=== PATIENT | male | born 1955 | race Caucasian/White ===

== ENCOUNTER 2022-09-23 20:21 | Emergency (ER) | payer BC, MEDICAID ==
[~2022-09-23] VITALS: Ht 193 cm; Wt 73.0 kg
[2022-09-23 20:25] VITALS: BP 115/73; PULSE 79; RESP 18; TEMP 98.1; O2SAT 98
[2022-09-24 02:15] LABS: BASOPHILS % 0.4 % (0.0-2.0); EOSINOPHILS % 1.5 % (0.0-5.0); HEMATOCRIT. 38.2 % (42.0-52.0); HEMOGLOBIN. 12.3 g/dL (14.0-18.0); LYMPHOCYTES % 12.5 % (20.0-50.0); MEAN CORPUSCULAR HEMOGLOBIN 20.3 pg (28.0-32.0); MEAN CORPUSCULAR VOLUME 63.1 fL (80.0-94.0); MEAN PLATELET VOLUME 9.4 fl (7.4-10.4); MONOCYTES % 12.7 % (2.0-8.0); NEUTROPHILS % 72.9 % (40.0-76.0); PLATELET 147 x1000/uL (130-400); RED BLOOD CELL COUNT 6.06 mill/uL (4.7-6.1); RED CELL DISTRIBUTION WIDTH 16.7 % (11.6-14.6)
[2022-09-24 02:23] LABS: CHLORIDE 103 mEq/L (98-107)
[2022-09-24 02:32] LABS: ETHANOL BLOOD < 10 mg/dL (-10)
[2022-09-24] MEDS ORDERED: DOXY-456 PO (02:57)
[2022-09-24] MEDS ORDERED: NAPR-681 PO (02:57)
[2022-09-24] MEDS ORDERED: ERYT1OIN6 RIGHTEYE (02:57)
[2022-09-24 05:25] LABS: PLATELET ESTIMATE NORMAL
== END 2022-09-24 03:26 | disposition home or self-care (01) ==
LOC: ER 20:21
DX: H10.31 Unspecified acute conjunctivitis, right eye (principal); H01.003 Unspecified blepharitis right eye, unspecified eyelid; R00.2 Palpitations
CPT/HCPCS: 36415; 71045; 80053; 80320; 83880; 84484; 85025; 93005; 99285; G0480